=== PATIENT | male | born 1990 | race African-American/Black ===

== ENCOUNTER 2016-10-21 09:35 | Emergency (ER) | payer SELFPAY ==
[~2016-10-21] VITALS: Ht 180.3 cm; Wt 70.0 kg
[2016-10-21 10:06] VITALS: BP 133/67
== END 2016-10-21 15:44 | disposition left against medical advice (07) ==
LOC: ER 09:35
DX: R46.89 Other symptoms and signs involving appearance and behavior (principal); Z53.21 Procedure and treatment not carried out due to patient leaving prior to being seen by health care provider

== ENCOUNTER 2016-11-02 07:18 | Emergency (ER) | payer SELFPAY ==
[~2016-11-02] VITALS: Ht 180.3 cm; Wt 73.0 kg
[2016-11-02] MEDS ORDERED: OLANZAPINE 5MG TABLET PO STA (08:02)
[2016-11-02 08:07] VITALS: BP 120/80
== END 2016-11-02 08:20 | disposition home or self-care (01) ==
LOC: ER 07:53
DX: F31.9 Bipolar disorder, unspecified (principal); R44.0 Auditory hallucinations; F12.10 Cannabis abuse, uncomplicated; F17.200 Nicotine dependence, unspecified, uncomplicated
CPT/HCPCS: 99284

== ENCOUNTER 2018-02-02 13:37 | Emergency (ER) | payer SELFPAY ==
[~2018-02-02] VITALS: Ht 180.3 cm; Wt 74.0 kg
[2018-02-02 14:13] VITALS: BP 114/71
== END 2018-02-02 17:45 | disposition left against medical advice (07) ==
LOC: ER 14:47
DX: M79.642 Pain in left hand (principal); F31.9 Bipolar disorder, unspecified; F12.10 Cannabis abuse, uncomplicated; F17.200 Nicotine dependence, unspecified, uncomplicated; Z53.21 Procedure and treatment not carried out due to patient leaving prior to being seen by health care provider